=== PATIENT | female | born 1970 | race Caucasian/White ===

== ENCOUNTER 2022-06-07 04:36 | Day surgery (SDC) | payer OTHER ==
[2022-06-04 13:45] VITALS: BMI 22.9
[2022-06-07 09:02] VITALS: TEMP 97.5
[2022-06-07 10:32] VITALS: BP 112/69; PULSE 58
== END 2022-06-07 10:42 | disposition home or self-care (01) ==
LOC: JASU-ENDO 04:36 → MERGE 08:00 → JASU-ENDO 10:42
PROVIDERS: ATTEND Internal Medicine Gastroenterology
PROC: 0DBL8ZX Excision of Transverse Colon, Via Natural or Artificial Opening Endoscopic, Diagnostic (ICD-10-PCS; 2022-06-07)
PROC: 0DBH8ZX Excision of Cecum, Via Natural or Artificial Opening Endoscopic, Diagnostic (ICD-10-PCS; principal; 2022-06-07 08:00)
DX: Z12.11 Encounter for screening for malignant neoplasm of colon (principal); D12.0 Benign neoplasm of cecum; D12.3 Benign neoplasm of transverse colon; K59.89 Other specified functional intestinal disorders; Z83.71 Family history of colonic polyps
CPT/HCPCS: 81025; 88305-TC